=== PATIENT | male | born 1990 | race Caucasian/White ===

== ENCOUNTER 2018-09-13 21:09 | Emergency (ER) | payer SELFPAY ==
[~2018-09-13] VITALS: Ht 175.3 cm; Wt 93.0 kg
[2018-09-14] MEDS ORDERED: KETOROLAC 60MG/2ML VIAL IM ONE (00:30)
[2018-09-14 01:30] VITALS: BP 124/89
== END 2018-09-14 02:16 | disposition home or self-care (01) ==
LOC: ER 21:09
DX: M54.5 Low back pain (principal); X58.XXXA Exposure to other specified factors, initial encounter; Y93.E2 Activity, laundry; Y92.89 Other specified places as the place of occurrence of the external cause; Y99.0 Civilian activity done for income or pay
CPT/HCPCS: 96372; 99283; J1885